=== PATIENT | male | born 1955 | race Caucasian/White ===

== ENCOUNTER 2019-04-08 12:10 | Inpatient (IN) | payer OTHER ==
[~2019-04-08] VITALS: Ht 182.9 cm; Wt 101.7 kg
[2019-04-08 12:16] VITALS: BP 165/67
[2019-04-08 12:34] LABS: ABSOLUTE BASOPHILS 0.1 thou/uL (0.0-0.2); ABSOLUTE EOSINOPHILS 0.2 thou/uL (0.0-0.7); ABSOLUTE LYMPHOCYTES 1.3 thou/uL (0.8-5.3); ABSOLUTE NEUTROPHILS 7.9 thou/uL (1.6-8.1); BASOPHILS 0.8 %; EOSINOPHILS 1.7 %; HEMATOCRIT 50.4 % (42.0-52.0); HEMOGLOBIN 17.1 gm/dL (14.0-18.0); LYMPHOCYTES 12.7 %; MCH 32.2 pg (26.0-34.0); MCHC 33.9 g/dL (28.0-37.0); MCV 95.2 fL (80.0-100.0); MONOCYTES 9.6 %; MPV 8.2 fl. (7.2-11.1); NUCLEATED RBCS 0 /100WBC; PLATELET COUNT* 200 thou/uL (150-400); POLYS 75.2 %; RDW-CV 14.1 % (10.5-14.5); WBC 10.5 thou/uL (4.0-11.0)
[2019-04-08 12:43] LABS: PROTIME 10.2 Seconds (9.20-11.50)
[2019-04-08 12:44] LABS: BE -5.8 mmol/L (-2 to +3); PCO2 33.6 mmHg (35.0-45.0); pH 7.358 (7.340-7.450)
[2019-04-08 12:47] LABS: CALCIUM 8.6 mg/dL (8.5-10.1); CREATININE 1.1 mg/dL (0.6-1.3); POTASSIUM 3.9 mmol/L (3.5-5.1)
[2019-04-08 12:51] LABS: ALBUMIN 3.9 g/dL (3.4-5.0); MAGNESIUM 1.9 mg/dL (1.8-2.4); TOTAL BILIRUBIN 0.4 mg/dL (<0.1-1.0); TOTAL PROTEIN 8.3 g/dL (6.4-8.2)
[2019-04-08 13:24] LABS: URINE BILIRUBIN NEGATIVE (Negative); URINE BLOOD 1+ (Negative); URINE CLARITY CLEAR; URINE COLOR YELLOW; URINE GLUCOSE-RANDOM NEGATIVE (Negative); URINE KETONES NEGATIVE (Negative); URINE LEUKOCYTES-REFLEX NEGATIVE (Negative); URINE NITRITE-REFLEX NEGATIVE (Negative); URINE PROTEIN NEGATIVE (Negative); URINE SPECIFIC GRAVITY 1.025 (1.005-1.030); URINE UROBILINOGEN 0.2 E.U./dl (0.2-1.0)
[2019-04-08 13:32] LABS: BACTERIA-REFLEX 1-9 Few /HPF (None Seen); CASTS None Seen /LPF (None Seen); CRYSTALS None Seen /LPF (None Seen); MUCUS 4-6 Moderate strn/LPF (None Seen); SQUAMOUS 0-3 Few /LPF (0-3); URINE RBC 3-10 Few /HPF (0-2); URINE WBC-REFLEX 0-5 Rare /HPF (0-5)
[2019-04-08 18:24] VITALS: BP 122/77
[2019-04-08 19:31] VITALS: BP 144/82
[2019-04-09] VITALS: BP 115/76
[2019-04-09 04:00] VITALS: BP 143/77
[2019-04-09 05:57] LABS: CALCIUM 8.4 mg/dL (8.5-10.1); MAGNESIUM 1.9 mg/dL (1.8-2.4)
[2019-04-09 08:00] VITALS: BP 137/78
[2019-04-09 11:17] VITALS: BP 117/80
[2019-04-09 16:00] VITALS: BP 119/78
--- NOTE | 2019-04-09 17:03 | EKG ---
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: [facility] : 1955 Requested By: Esperanza Khanna Order Number: [id number] MD: Davon Ureña Measurements Intervals [place] Rate: 95 P: 82 FL: 147 QRS: -73 QRSD: 99 T: 89 QT: 341 QTc: 429 Interpretive Statements Sinus rhythm Left anterior fascicular block Nonspecific T abnrm, anterolateral leads No previous ECG available for comparison Electronically Signed On 04-09-2019 17:02:51 FACILITY PRACTICE SPECIALIST by Davon Ureña [email or web address] <ELECTRONICALLY SIGNED> By: Davon Ureña MD, [facility] 04/09/19 1702 1228 1228 Davon Ureña MD, FAC /EPI
[2019-04-09 20:05] VITALS: BP 108/70
[2019-04-10] VITALS (7 sets, daily range): BP systolic 113–160; BP diastolic 46–86
[2019-04-11 04:10] VITALS: BP 141/72
[2019-04-11 08:00] VITALS: BP 139/88
[2019-04-11 12:00] VITALS: BP 112/73
[2019-04-11] MEDS ORDERED: PREDNISONE 10 M10 MG PO (14:20)
[2019-04-11] MEDS ORDERED: KEFLEX500 M1 PO (14:20)
[2019-04-11] MEDS ORDERED: VENTOLIN HFA 1818 GM INH (14:20)
[2019-04-11 17:47] VITALS: BP 112/73
[2019-04-12 04:04] VITALS: BP 131/77
== END 2019-04-11 20:00 | disposition home or self-care (01) | DRG 193 ==
LOC: M.ERS 12:10 → M.TBA-ER 14:08 → M.2W 14:08
PROVIDERS: Personal Emergency Response Attendant; ADMIT Internal Medicine
DX: J18.9 Pneumonia, unspecified organism (principal); I26.99 Other pulmonary embolism without acute cor pulmonale; J44.0 Chronic obstructive pulmonary disease with (acute) lower respiratory infection; I24.9 Acute ischemic heart disease, unspecified; J44.1 Chronic obstructive pulmonary disease with (acute) exacerbation; F17.210 Nicotine dependence, cigarettes, uncomplicated; J11.1 Influenza due to unidentified influenza virus with other respiratory manifestations; I50.9 Heart failure, unspecified; Z87.442 Personal history of urinary calculi; Z79.899 Other long term (current) drug therapy

== ENCOUNTER 2020-02-25 22:52 | Inpatient (IN) | payer OTHER ==
[~2020-02-25] VITALS: Ht 182.9 cm; Wt 104.3 kg
--- NOTE | ~2020-02-25 | EMS ---
[address] [address] EMS Patient Care Report Name: FADI NICHOLAS Room: [address] ADM IN M.R.#: [id number] Admission: 02/26/20 Attend Phys: Sebastian Claudio MD Discharge: Date of : 59 Report #: [id number] THIS REPORT FOR: //name// Report Transmitted: 02/26/2020 11:57 EMS Care Summary [facility] Incident [id number] @ 02/25/2020 22:11 Incident Location [address] [place] [address] Patient Fadi Nicholas Male, 64 Years 1955 Patient Address [address] [place] [address] Patient History Chronic Obstructive Pulmonary Disease (COPD), Patient Allergies No known allergies, Chief Complaint Shortness of Breath Disposition Transported No Lights/[place] Reason Breathing Problem Transported To [facility] Narrative on scene of a 64 y/o male c/o SOB. pt found sitting in tripod position on chair a/ox4 in moderate distress. per pt he has been SOB for the last 4 days and it has been increasing. per pt he ran out of medication about 1 month ago. SPO2 checked and lungs checked. pt given o2 via neb mask and albuterol and atrovent. pt noted to have increase in SPO2 and decrease work of breathing. pt requested transport to [facility]. pt was assisted to [facility] and during transfer pt work [address] [address] EMS Patient Care Report Name: FADI NICHOLAS Room: 229- ADM IN M.R.#: [id number] Admission: 02/26/20 Attend Phys: Sebastian Claudio MD Discharge: Date of : 59 Report #: [id number] of breathing increased as well as an increase in anxiety. pt moved to micu and vitals checked and monitor showed NSR. pt calmed down for transport. pt transported to [facility] c-2. en route pt reassessed. lungs still had wheezing noted. pt given second dose of albuterol via neb mask. pt denies any c/p abd pain N/V dizziness headache. IV established in left hand 20g with a saline lock using aseptic technique. secondary had no other complaints noted. vitals rechecked with no changes noted. arrive [facility] transfer to ACTUARIAL ANALYST in pt room. Initial Vitals @22:22SpO2: 92, @22:29SpO2: 97, @22:31SpO2: 95, @22:42SpO2: 98, @22:31 @22:22P: 85,R: 30,BP: 166/100, @22:31P: 90,R: 24,BP: 189/144, @22:43P: 86,R: 24,BP: 142/97, @22:22GCS: 15, @22:31GCS: 15, @22:43GCS: 15, @22:19 Assessments @22:19MENTAL:SKIN:HEENT:LUNG SOUNDS:ABDOMEN:PELVIS//GI:EXTREMITIES:PULSE:NEURO: Impression Acute Respiratory Distress (Dyspnea) Procedures @22:22Other - Medication - 8.000 Liters per Minute (l/min [fluid]) - InhalationResponse: Improved@22:22Albuterol - 2.500 Milligrams (mg) - InhalationResponse: Improved@22:22Ipratropium - 0.500 Milligrams (mg) - InhalationResponse: Improved@22:31Albuterol - 2.500 Milligrams (mg) - InhalationResponse: Improved@22:37 cc () Site: Hand-LeftResponse: ImprovedSucceeded@22:313-Lead ECGResponse: UnchangedSucceeded Timeline 22:19,Call Received 22:11,Dispatch Notified 22:11,Psap Call 22:11,Dispatched 22:12,En Route 22:16,On Scene 22:19,At Patient 22:19,BP: / M,PULSE: ,RR: R,SPO2: Ox,ETCO2: ,BG: ,PAIN: ,GCS: , [place] [address] EMS Patient Care Report Name: CRISTOPHERFADI Room: [address] ADM IN .R.#: [id number] Admission: 02/26/20 Attend Phys: Sebastian Claudio MD Discharge: Date of : 59 Report #: [id number] 22:22,Other - Medication - 8.000 Liters per Minute (l/min [fluid]) - Inhalation,Response: Improved 22:22,Albuterol - 2.500 Milligrams (mg) - Inhalation,Response: Improved 22:22,Ipratropium - 0.500 Milligrams (mg) - Inhalation,Response: Improved 22:22,BP: / M,PULSE: ,RR: R,SPO2: 92 Ox,ETCO2: ,BG: ,PAIN: ,GCS: , 22:22,BP: 166/100 M,PULSE: 85,RR: 30 R,SPO2: Ox,ETCO2: ,BG: ,PAIN: ,GCS: , 22:22,BP: / M,PULSE: ,RR: R,SPO2: Ox,ETCO2: ,BG: ,PAIN: ,GCS: 15, 22:29,BP: / M,PULSE: ,RR: R,SPO2: 97 Ox,ETCO2: ,BG: ,PAIN: ,GCS: , 22:31,BP: / M,PULSE: ,RR: R,SPO2: 95 Ox,ETCO2: ,BG: ,PAIN: ,GCS: , 22:31,BP: 189/144 M,PULSE: 90,RR: 24 R,SPO2: Ox,ETCO2: ,BG: ,PAIN: ,GCS: , 22:31,BP: / M,PULSE: ,RR: R,SPO2: Ox,ETCO2: ,BG: ,PAIN: ,GCS: 15, 22:31,Depart Scene 22:31,Albuterol - 2.500 Milligrams (mg) - Inhalation,Response: Improved 22:31,3-Lead ECG,Response: UnchangedSucceeded, 22:31,BP: / M,PULSE: ,RR: R,SPO2: Ox,ETCO2: ,BG: ,PAIN: ,GCS: , 22:37, cc Site: Hand-Left,Response: ImprovedSucceeded, 22:42,BP: / M,PULSE: ,RR: R,SPO2: 98 Ox,ETCO2: ,BG: ,PAIN: ,GCS: , 22:42,At Destination 22:43,BP: 142/97 M,PULSE: 86,RR: 24 R,SPO2: Ox,ETCO2: ,BG: ,PAIN: ,GCS: , 22:43,BP: / M,PULSE: ,RR: R,SPO2: Ox,ETCO2: ,BG: ,PAIN: ,GCS: 15, 22:55,Call Closed Disclaimer v1.1 Copyright 2020 [employer] This EMS Care Summary contains data elements from the applicable legal record (which may be displayed differently). It is designed to provide pertinent information for the following purposes: continuity of care, clinical quality, and state data reporting. The complete legal record is available to ED staff and administrators of the receiving hospital in [employer]'s Patient Tracker. All data is provided "as is."
[~2020-02-25 22:52] MED LIST: KEFLEX500 M1 PO; PREDNISONE 10 M10 MG PO; VENTOLIN HFA 1818 GM INH
[2020-02-25 22:55] VITALS: BP 154/102
[2020-02-25] MEDS ORDERED: SYMBICORT160 MCG/4. INH (22:59)
[2020-02-25 23:46] LABS: ABSOLUTE BASOPHILS 0.1 thou/uL (0.0-0.2); ABSOLUTE EOSINOPHILS 0.6 thou/uL (0.0-0.7); ABSOLUTE LYMPHOCYTES 2.1 thou/uL (0.8-5.3); ABSOLUTE MONOCYTES 0.8 thou/uL (0.0-1.2); ABSOLUTE NEUTROPHILS 7.9 thou/uL (1.6-8.1); BASOPHILS 0.5 %; EOSINOPHILS 5.6 %; HEMATOCRIT 48.2 % (42.0-52.0); HEMOGLOBIN 16.1 gm/dL (14.0-18.0); MCH 32.1 pg (26.0-34.0); MCHC 33.4 g/dL (28.0-37.0); MCV 96.1 fL (80.0-100.0); MONOCYTES 6.9 %; MPV 7.8 fl. (7.2-11.1); NUCLEATED RBCS 0 /100WBC; PLATELET COUNT* 180 thou/uL (150-400); RBC 5.01 mil/uL (4.50-6.00); RDW-CV 13.7 % (10.5-14.5); WBC 11.4 thou/uL (4.0-11.0)
[2020-02-25 23:54] LABS: INFLUENZA A ANTIGEN Negative (Negative); INFLUENZA B ANTIGEN Negative (Negative)
[2020-02-26 00:02] LABS: CALCIUM 8.1 mg/dL (8.5-10.1); CREATININE 0.9 mg/dL (0.6-1.3); POTASSIUM 3.8 mmol/L (3.5-5.1); PROTIME 10.7 Seconds (9.20-11.50)
[2020-02-26 00:06] LABS: ALBUMIN 3.5 g/dL (3.4-5.0); TOTAL BILIRUBIN 0.5 mg/dL (<0.1-1.0); TOTAL PROTEIN 7.2 g/dL (6.4-8.2)
[2020-02-26 00:55] LABS: BE -5.1 mmol/L (-2 to +3); PCO2 37.3 mmHg (35.0-45.0); PO2 107.5 mmHg (75.0-100.0); pH 7.345 (7.340-7.450)
[2020-02-26 04:30] VITALS: BP 104/66
[2020-02-26 08:39] VITALS: BP 134/80
[2020-02-26 08:46] VITALS: BP 134/80
--- NOTE | 2020-02-26 08:48 | NUR ---
PT ORIENTED TO ROOM AND UNIT, KELLY LOW AND LOCKED, SIDE RAILS UPX3, CALL LIGHT IN REACH, TELE APPLIED. WILL CONTINUE TO ASSESS.
--- NOTE | 2020-02-26 10:06 | EKG ---
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: [place] : 1955 Requested By: Esperanza Khanna Order Number: [id number] MD: Juan M Schmitz Measurements Intervals [place] Rate: 90 P: 83 ND: 152 QRS: -75 QRSD: 102 T: 83 QT: 366 QTc: 448 Interpretive Statements Sinus rhythm with pac Left anterior fascicular block Baseline wander in lead(s) V1,V3 Compared to ECG 04/08/2019 12:28:25 no change Electronically Signed On 02-26-2020 10:06:43 DIRECT MARKETING ANALYST by Juan M Schmitz [email or web address] <ELECTRONICALLY SIGNED> By: Juan M Schmitz MD, FACC 02/26/20 1006 50 50 Juan M Schmitz MD, FAC /EPI
[2020-02-26 13:11] VITALS: BP 124/78
[2020-02-26 15:40] VITALS: BP 113/66
[2020-02-26 20:20] VITALS: BP 102/64
[2020-02-27] VITALS: BP 109/65
[2020-02-27 04:00] VITALS: BP 111/62
--- NOTE | 2020-02-27 05:26 | NUR ---
ASSUMED CARE AT 1920, ON [facility]. ALERT AND ORIENT. NO DISTRESS. PT ASKING FOR SYMBICORT COUPON FROM THE CLINICAL CODER HE TALKED YESTERDAY. HIS HOPING TO GET BEFOR DISCHARGE. CONTINUE MONITORING AND TOWARDS GOALS.
[2020-02-27 08:00] VITALS: BP 121/64
--- NOTE | 2020-02-27 10:04 | NUR ---
CM SPOKE TO THE PT TO COMPLETE CM ASSESSMENT. PT A&O, INDEPENDENT WITH ADL'S, AND WORKS OUTSIDE THE HOME. PT OWNS 0 DME. PT HAS 0 HX OF HH OR SNF. PT INFROMS THAT HE DOES NOT HAVE INSURANCE, BUT INFORMS THAT HE WILL HAVE INSURANCE IN MARCH. PT ALSO INFORMS THAT HE BEEN GOING TO THE '[facility]' FOR MEDICAL CARE AND MANAGEMENT, AND WILL CONTINUE TO USE THEM AT D/C DUE TO NOT HAVING INSURANCE. PT ASSESSED BY MED ASSIST AND IS MEDICAID PENDING STATUS. PATIENT'S INSURANCE STATUS MAY BE A BARRIER TO D/C PLANNING IF THE PT WOULD NEED HOME O2 OR OTHER DME. PT IS CURRENTLY ON 4L O2 AND USING BIPAP AT [facility]. CM WILL REMAIN AVAILABLE TO ASSIST AND FOLLOW NEEDED.
[2020-02-27 12:14] VITALS: BP 142/68
[2020-02-27 16:13] VITALS: BP 118/77
--- NOTE | 2020-02-27 17:56 | NUR ---
ASSUMED PT CARE AT 0730, PT AOX4, NO C/O PAIN OR SHORTNESS OF BREATH BUT STATES HE BECOMES SHORT OF BREATH SOMETIMES WHEN HE WALKS AROUND. PT TITRATED FROM 4L TO RA, SATTING ABOVE 90%. PT AMBULATED HALLS THIS AFTERNOON. PT NEEDS SYMBALTA SCRIPT FOR NEXT 30 DAYS SINCE HIS INSURANCE DOESN'T KICK IN UNTIL Mar, CM CONSULTED FOR THIS AND AWAITING SCRIPT. PT GOAL IS TO KEEP SATS ABOVE 90% AND REMAIN FREE FROM SHORTNESS OF BREATH. AM ASSESSMENT CHARTED, MEDS PER MAY, HOURLY ROUNDING OBSERVED, PT UP AD MICKI, CALL LIGHT W/IN REACH.
[2020-02-27 20:00] VITALS: BP 129/77
[2020-02-28] VITALS: BP 99/55
[2020-02-28 04:00] VITALS: BP 121/77
[2020-02-28 04:36] LABS: HEMATOCRIT 47.3 % (42.0-52.0); HEMOGLOBIN 15.5 gm/dL (14.0-18.0); MCH 31.9 pg (26.0-34.0); MCHC 32.8 g/dL (28.0-37.0); MCV 97.2 fL (80.0-100.0); MPV 8.2 fl. (7.2-11.1); NUCLEATED RBCS 0 /100WBC; PLATELET COUNT* 177 thou/uL (150-400); RBC 4.87 mil/uL (4.50-6.00); RDW-CV 14.1 % (10.5-14.5); WBC 19.3 thou/uL (4.0-11.0)
[2020-02-28 04:59] LABS: ALBUMIN 3.1 g/dL (3.4-5.0); CALCIUM 7.9 mg/dL (8.5-10.1); CREATININE 0.9 mg/dL (0.6-1.3); TOTAL BILIRUBIN 0.2 mg/dL (<0.1-1.0); TOTAL PROTEIN 6.7 g/dL (6.4-8.2)
[2020-02-28 06:41] LABS: ABSOLUTE LYMPHOCYTES 1.4 thou/uL (0.8-5.3); ABSOLUTE MONOCYTES 0.8 thou/uL (0.0-1.2); ABSOLUTE NEUTROPHILS 17.2 thou/uL (1.6-8.1); PLATELET ESTIMATE ADEQUATE
[2020-02-28 08:00] VITALS: BP 169/100
[2020-02-28 12:17] VITALS: BP 123/82
[2020-02-28] MEDS ORDERED: PREDNISONE 20 M20 M1 PO (15:12)
[2020-02-28 15:15] VITALS: BP 123/82
--- NOTE | 2020-02-28 15:43 | NUR ---
CM SPOKE TO THE PT TO DISCUSS D/C PLANNING AND CM ASSISTING PT WITH MEDICATIONS. PT ACCEPTS ASSISSTANCE WITH PRESCRIPTION FOR STYMBICORT. CM CALLED AND FAXED PT'S SCRIPT TO [facility]. PT INFORMED THAT HE WILL NOT HAVE COPAY AMOUNT FOR SYMBICORT. PT TEST BY R.T. AND PT DOES NOT NEED HOME OXYGEN AT D/C. CM WILLL REMAIN AVAILABLE TO ASSIST AND FOLLOW NEEDED.
[2020-02-28 16:00] VITALS: BP 126/75
--- NOTE | 2020-02-28 18:13 | NUR ---
ASSUMED PT CARE AT 0730, PT AOX4, NO C/O PAIN OR SHORTNESS OF BREATH. PT TITRATED TO RA AGAIN, SATS ABOVE 90%, PT WORKED W/ RT AND DID WALKING O2 MONITOR, DID WELL. PT GOT SCRIPT FOR SYMBICORT COVERED BY HOSPITAL AND SCRIPT FOR PREDNISONE CALLED INTO [address] [facility]. PT BEING PICKED UP BY [facility] AT APPROX 1823, PT DC'D W/ NURSING STAFF TO FRONT ENTRANCE AT APPROX 1815 W/ ALL PAPERWORK AND BELONGINGS TO [facility]. PT COMMUNICATES UNDERSTANDING OF DC TEACHING.
--- NOTE | 2020-02-29 14:41 | CON ---
[address] [address] CONSULTATION Name: FADI NICHOLAS Room: [address] IN M.R.#: [id number] Admission: 02/26/20 Attend Phys: Sebastian Claudio MD Discharge: 02/28/20 Date of : 59 Report #: [id number] THIS REPORT FOR: //name// cc: Dick Johnston DO MouseDick DO ~ DATE OF SERVICE: 02/28/2020 Consult has been requested by Paris Smith. INDICATION FOR CONSULTATION: COPD exacerbation. HISTORY OF PRESENT ILLNESS: A 64-year-old gentleman. He is an active smoker and does have a history of COPD, was on Symbicort at home, which he ran out of. He subsequently did self-medicate with prednisone; however, continued to have increasing shortness of breath as well as a cough with yellow sputum production; and therefore, eventually was admitted here. He only has mild swelling of lower extremities. He is not describing fever or chills. He has had some runny nose and blocked nose, which remain at baseline. He has some sleep complaints, which remain at baseline. Initially, he was hypoxemic. He did require a BiPAP. He is now off BiPAP. He was on 4 liters nasal cannula this morning, which has now been titrated down to 2. He reports improvement in shortness of breath. He has been on Solu-Medrol. He has not been on broad-spectrum antibiotics. REVIEW OF SYSTEMS: The patient's review of systems for 12 points is negative except as mentioned above. PAST MEDICAL HISTORY: COPD, kidney stones, tonsillitis, lower abdominal hernia. SOCIAL HISTORY: Active smoker, has been smoking for several decades. Occasional alcohol use. No known history of illegal drug use. CURRENT MEDICATIONS: List in KO-SU reviewed. HOME MEDICATIONS: List also in KO-SU reviewed. Also, see discussion above. FAMILY HISTORY: No pertinent family history. PHYSICAL EXAMINATION: GENERAL: Alert, awake and oriented. VITAL SIGNS: He has a pulse of 84 and a blood pressure of 169/100 this morning. This, however, appears to be an isolated reading. Most blood pressures are within the normal range. His oxygen had been turned down to 2 liters. On [address] [place] [address] CONSULTATION Name: FADI NICHOLAS Room: [address] IN [facility]#: [id number] Admission: 02/26/20 Attend Phys: Sebastian Claudio MD Discharge: 02/28/20 Date of : 59 Report #: [id number] liters, he was saturating 94% earlier. He has a pulse of 84. He is afebrile with a temperature of 36.6. HEENT: Head is normocephalic and atraumatic. Pupils are equal and reactive. He does have thrush in his throat. He has a narrow airway. NECK: Does not show raised JVP, asymmetry, mass or lymph nodes. CHEST: Symmetrical expansion on inspection and palpation. On auscultation, breath sounds are bilaterally equal, decreased. No added sounds. HEART: Regular. There is no murmur. ABDOMEN: Soft and nontender. EXTREMITIES: Lower extremities show trace edema, no calf tenderness. SKIN: Dry and intact. NEUROLOGICAL: Moves all extremities bilaterally equally and spontaneously with no focal deficit identified. LABORATORY DATA: The patient's lab work is in [facility]. This was reviewed. The patient's chest x-ray from 02/24 also in [facility] reviewed, shows changes consistent with COPD with no acute infiltrates identified. ASSESSMENT AND PLAN: 1. Acute hypoxemic respiratory failure secondary to chronic obstructive pulmonary disease. We will do a chest x-ray now and see where we stand. Recommended trying to taper him off oxygen. If the patient is able to maintain O2 saturations on room air then I do not feel strongly either way regarding discharging him today or tomorrow morning. If he is still requiring supplemental oxygen at rest then I would favor keeping him in the hospital tomorrow. Assessment is underway. 2. Chronic obstructive pulmonary disease exacerbation. I agree with Solu-Medrol, which has now been discontinued. He remains on oxygen. I may order more Solu-Medrol for this evening. Otherwise, I agree with starting a prednisone taper tomorrow. He has had yellow sputum production, which is the reason that I ordered doxycycline. If there are significant infiltrates seen on the chest x-ray then additional antibiotics can also be considered. 3. Thrush. Fluconazole. 4. Hypersomnia. It appears likely that he has underlying sleep apnea. I will be happy to arrange an outpatient sleep study. 5. I would also be happy to see the patient in the office in March and then assess further. Thanks for this consultation. <ELECTRONICALLY SIGNED> By: Carlos Roberts MD 02/29/20 1441 1206 1221Amark anthony Roberts MD /nt
== END 2020-02-28 18:13 | disposition home or self-care (01) | DRG 189 ==
LOC: M.ERS 22:52 → M.TBA-ER 02-26 00:10 → M.2W 02-26 09:08 → M.TBA-ER 02-26 09:08 → M.2W 02-26 09:29
PROVIDERS: Nurse Practitioner; Personal Emergency Response Attendant; ADMIT Internal Medicine; ATTEND Internal Medicine
PROC: 5A09357 Assistance with Respiratory Ventilation, Less than 24 Consecutive Hours, Continuous Positive Airway Pressure (ICD-10-PCS; principal; 2020-02-26)
DX: J96.01 Acute respiratory failure with hypoxia (principal); J44.1 Chronic obstructive pulmonary disease with (acute) exacerbation; F17.210 Nicotine dependence, cigarettes, uncomplicated; E66.9 Obesity, unspecified; B37.9 Candidiasis, unspecified; G47.10 Hypersomnia, unspecified; Z20.828 Contact with and (suspected) exposure to other viral communicable diseases; Z87.442 Personal history of urinary calculi; Z68.31 Body mass index [BMI] 31.0-31.9, adult; Z71.6 Tobacco abuse counseling

== ENCOUNTER 2020-04-10 19:49 | Inpatient (IN) | payer OTHER ==
[~2020-04-10] VITALS: Ht 182.9 cm; Wt 114.8 kg
[~2020-04-10 19:49] MED LIST changes: +PREDNISONE 20 M20 M1 PO; +SYMBICORT160 MCG/4. INH
[2020-04-10 19:56] VITALS: BP 143/94
[2020-04-10] MEDS ORDERED: FLONASE 0.05%50 MCG NARES (20:00)
[2020-04-10] MEDS ORDERED: FLONASE 0.05%50 MCG NASAL (20:00)
[2020-04-10 20:28] LABS: ABSOLUTE BASOPHILS 0.1 thou/uL (0.0-0.2); ABSOLUTE EOSINOPHILS 0.5 thou/uL (0.0-0.7); ABSOLUTE LYMPHOCYTES 2.6 thou/uL (0.8-5.3); ABSOLUTE MONOCYTES 0.9 thou/uL (0.0-1.2); ABSOLUTE NEUTROPHILS 7.7 thou/uL (1.6-8.1); BASOPHILS 0.8 %; EOSINOPHILS 4.5 %; HEMATOCRIT 49.8 % (42.0-52.0); HEMOGLOBIN 16.5 gm/dL (14.0-18.0); LYMPHOCYTES 22.2 %; MCH 31.6 pg (26.0-34.0); MCHC 33.2 g/dL (28.0-37.0); MCV 95.1 fL (80.0-100.0); MONOCYTES 7.3 %; MPV 8.2 fl. (7.2-11.1); NUCLEATED RBCS 0 /100WBC; PLATELET COUNT* 187 thou/uL (150-400); POLYS 65.2 %; RBC 5.23 mil/uL (4.50-6.00); WBC 11.8 thou/uL (4.0-11.0)
[2020-04-10 20:35] LABS: CALCIUM 8.4 mg/dL (8.5-10.1); CREATININE 0.9 mg/dL (0.6-1.3); POTASSIUM 3.8 mmol/L (3.5-5.1)
[2020-04-10 20:38] LABS: APTT 27.6 Seconds (25.0-31.3); PROTIME 10.3 Seconds (9.20-11.50)
[2020-04-10 20:40] LABS: ALBUMIN 3.7 g/dL (3.4-5.0); MAGNESIUM 2.2 mg/dL (1.8-2.4); TOTAL BILIRUBIN 0.4 mg/dL (<0.1-1.0); TOTAL PROTEIN 7.4 g/dL (6.4-8.2)
[2020-04-10 20:42] LABS: INFLUENZA A ANTIGEN Negative (Negative); INFLUENZA B ANTIGEN Negative (Negative)
[2020-04-10 21:00] LABS: BE -2.5 mmol/L (-2 to +3); PCO2 37.5 mmHg (35.0-45.0); PO2 65.6 mmHg (75.0-100.0); pH 7.385 (7.340-7.450)
[2020-04-10 23:35] VITALS: BP 127/80
[2020-04-11 00:19] LABS: URINE BILIRUBIN NEGATIVE (Negative); URINE BLOOD NEGATIVE (Negative); URINE CLARITY CLEAR; URINE COLOR YELLOW; URINE GLUCOSE-RANDOM NEGATIVE (Negative); URINE KETONES NEGATIVE (Negative); URINE LEUKOCYTES-REFLEX NEGATIVE (Negative); URINE NITRITE-REFLEX NEGATIVE (Negative); URINE PROTEIN NEGATIVE (Negative); URINE SPECIFIC GRAVITY 1.015 (1.005-1.030); URINE UROBILINOGEN 0.2 E.U./dl (0.2-1.0)
[2020-04-11 00:57] VITALS: BP 146/95
[2020-04-11 03:59] VITALS: BP 123/85
[2020-04-11 12:00] VITALS: BP 154/96
--- NOTE | 2020-04-11 12:57 | EKG ---
[place] [address] ELECTROCARDIOGRAM REPORT Name: AFDI NICHOLAS Room: [address] ADM IN .R.#: [id number] Admission: 04/10/20 Attend Phys: Sebastian Claudio, Discharge: Date of : 59 Date of Service: 04/10/201955 Report #: [id number] THIS REPORT FOR: //name// [facility] ED Test Date: 2020-04-10 Test Time: 19:56:22 Pat Name: FADI NICHOLAS Department: Room: [facility] Gender: M Hydroblaster: [place] : 1955 Requested By: Esperanza Khanna Order Number: [id number] MD: Davon Ureña Measurements Intervals [place] Rate: 91 P: 69 NE: 148 QRS: -73 QRSD: 98 T: 86 QT: 351 QTc: 432 Interpretive Statements Sinus rhythm Left anterior fascicular block Compared to ECG 02/25/2020 22:51:42 Atrial premature complex(es) no longer present Electronically Signed On 04-11-2020 12:57:37 CERTIFIED EXECUTIVE CHEF by Davon Ureña [email or web address] <ELECTRONICALLY SIGNED> By: Davon Ureña MD, FACC 04/11/20 1257 55 55 Davon Ureña MD, FAC /EPI
[2020-04-11 16:00] VITALS: BP 146/82
[2020-04-11 20:06] VITALS: BP 146/86
[2020-04-12 04:06] LABS: CALCIUM 8.8 mg/dL (8.5-10.1); POTASSIUM 4.1 mmol/L (3.5-5.1)
[2020-04-12 04:19] LABS: HEMATOCRIT 47.5 % (42.0-52.0); HEMOGLOBIN 15.7 gm/dL (14.0-18.0); MCH 31.4 pg (26.0-34.0); MCV 95.1 fL (80.0-100.0); MPV 8.7 fl. (7.2-11.1); RBC 4.99 mil/uL (4.50-6.00); RDW-CV 13.8 % (10.5-14.5); WBC 18.6 thou/uL (4.0-11.0)
[2020-04-12 04:21] VITALS: BP 136/82
[2020-04-12 08:00] VITALS: BP 121/86
[2020-04-12] MEDS ORDERED: DOXYCYCLINE 10100 MG PO (08:59)
[2020-04-12] MEDS ORDERED: PREDNISONE 10 M10 M1 PO (08:59)
[2020-04-12 11:18] VITALS: BP 121/86
== END 2020-04-12 12:00 | disposition home or self-care (01) | DRG 189 ==
LOC: M.ERS 19:49 → M.2W 21:46 → M.TBA-ER 21:46 → M.2W 23:45
PROVIDERS: Family Medicine; Personal Emergency Response Attendant; ADMIT Internal Medicine; ATTEND Internal Medicine
DX: J96.01 Acute respiratory failure with hypoxia (principal); J44.1 Chronic obstructive pulmonary disease with (acute) exacerbation; E66.01 Morbid (severe) obesity due to excess calories; F17.200 Nicotine dependence, unspecified, uncomplicated; R73.9 Hyperglycemia, unspecified; T38.0X5A Adverse effect of glucocorticoids and synthetic analogues, initial encounter; Z20.822 Contact with and (suspected) exposure to COVID-19; Z68.34 Body mass index [BMI] 34.0-34.9, adult; Z79.899 Other long term (current) drug therapy; Y92.89 Other specified places as the place of occurrence of the external cause

== ENCOUNTER 2020-05-06 06:18 | Emergency (ER) | payer OTHER ==
[~2020-05-06] VITALS: Ht 182.9 cm; Wt 115.5 kg
[~2020-05-06 06:18] MED LIST changes: +DOXYCYCLINE 10100 MG PO; +FLONASE 0.05%50 MCG NARES; +FLONASE 0.05%50 MCG NASAL; +PREDNISONE 10 M10 M1 PO
[2020-05-06] MEDS ORDERED: PROAIR HFA8.5 GM INH ×2 (06:32→07:56)
[2020-05-06 07:10] LABS: ABSOLUTE BASOPHILS 0.1 thou/uL (0.0-0.2); ABSOLUTE EOSINOPHILS 0.3 thou/uL (0.0-0.7); ABSOLUTE LYMPHOCYTES 1.6 thou/uL (0.8-5.3); ABSOLUTE MONOCYTES 0.7 thou/uL (0.0-1.2); ABSOLUTE NEUTROPHILS 6.2 thou/uL (1.6-8.1); BASOPHILS 0.7 %; EOSINOPHILS 3.7 %; HEMATOCRIT 47.2 % (42.0-52.0); HEMOGLOBIN 15.9 gm/dL (14.0-18.0); LYMPHOCYTES 17.8 %; MCH 32.3 pg (26.0-34.0); MCHC 33.8 g/dL (28.0-37.0); MCV 95.6 fL (80.0-100.0); MONOCYTES 7.8 %; MPV 7.7 fl. (7.2-11.1); NUCLEATED RBCS 0 /100WBC; PLATELET COUNT* 196 thou/uL (150-400); RBC 4.94 mil/uL (4.50-6.00); RDW-CV 13.8 % (10.5-14.5); WBC 8.9 thou/uL (4.0-11.0)
[2020-05-06 07:21] LABS: APTT 28.3 Seconds (25.0-31.3); PROTIME 10.4 Seconds (9.20-11.50)
[2020-05-06 07:23] LABS: CALCIUM 8.5 mg/dL (8.5-10.1); POTASSIUM 4.1 mmol/L (3.5-5.1)
[2020-05-06 07:34] LABS: ALBUMIN 3.5 g/dL (3.4-5.0); MAGNESIUM 2.1 mg/dL (1.8-2.4); TOTAL BILIRUBIN 0.4 mg/dL (<0.1-1.0); TOTAL PROTEIN 7.1 g/dL (6.4-8.2)
[2020-05-06] MEDS ORDERED: PREDNISONE 20 M20 MG PO (07:56)
[2020-05-06] MEDS ORDERED: DOXYCYCLINE 10100 MG PO (07:56)
[2020-05-06 08:14] VITALS: BP 115/75
--- NOTE | 2020-05-07 14:05 | EKG ---
[place] [address] ELECTROCARDIOGRAM REPORT Name: FADI NICHOLAS Room: 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 : 1955 Requested By: Austyn Lunsford Order Number: [id number] MD: Bobby Sultana Measurements Intervals [place] Rate: 87 P: 65 [place]: 149 QRS: -70 QRSD: 96 T: 79 QT: 355 QTc: 427 Interpretive Statements Sinus rhythm Left anterior fascicular block Compared to ECG 04/10/2020 19:56:22 No significant changes Electronically Signed On 05-07-2020 14:05:05 EXTRUSION MANAGER by Bobby Sultana [email or web address] <ELECTRONICALLY SIGNED> By: oBbby Sultana MD, [facility] 05/07/20 1405 0627 0627 Bobby Sultana MD, [facility] /EPI
== END 2020-05-06 08:16 | disposition home or self-care (01) ==
LOC: M.ERS 06:18
PROVIDERS: Family Medicine
DX: J44.9 Chronic obstructive pulmonary disease, unspecified (principal); Z20.822 Contact with and (suspected) exposure to COVID-19; Z87.442 Personal history of urinary calculi; Z90.89 Acquired absence of other organs

== ENCOUNTER 2020-05-22 17:15 | Observation (INO) | payer OTHER ==
[~2020-05-22] VITALS: Ht 182.9 cm; Wt 114.8 kg
[~2020-05-22 17:15] MED LIST changes: +PREDNISONE 20 M20 MG PO; +PROAIR HFA8.5 GM INH
[2020-05-22 17:16] VITALS: BP 141/91
[2020-05-22 18:06] LABS: ABSOLUTE BASOPHILS 0.1 thou/uL (0.0-0.2); ABSOLUTE EOSINOPHILS 0.2 thou/uL (0.0-0.7); ABSOLUTE LYMPHOCYTES 2.2 thou/uL (0.8-5.3); ABSOLUTE MONOCYTES 0.9 thou/uL (0.0-1.2); ABSOLUTE NEUTROPHILS 7.8 thou/uL (1.6-8.1); BASOPHILS 1.3 %; EOSINOPHILS 2.2 %; HEMATOCRIT 46.7 % (42.0-52.0); HEMOGLOBIN 15.5 gm/dL (14.0-18.0); LYMPHOCYTES 19.4 %; MCH 31.8 pg (26.0-34.0); MCHC 33.1 g/dL (28.0-37.0); MCV 95.9 fL (80.0-100.0); MONOCYTES 8.3 %; MPV 8.3 fl. (7.2-11.1); NUCLEATED RBCS 0 /100WBC; PLATELET COUNT* 195 thou/uL (150-400); POLYS 68.8 %; RBC 4.87 mil/uL (4.50-6.00); RDW-CV 13.9 % (10.5-14.5); WBC 11.3 thou/uL (4.0-11.0)
[2020-05-22 18:16] LABS: CALCIUM 8.8 mg/dL (8.5-10.1); POTASSIUM 3.9 mmol/L (3.5-5.1)
[2020-05-22 18:23] LABS: APTT 28.5 Seconds (25.0-31.3); PROTIME 10.3 Seconds (9.20-11.50)
[2020-05-22 18:27] LABS: ALBUMIN 3.3 g/dL (3.4-5.0); MAGNESIUM 2.2 mg/dL (1.8-2.4); TOTAL BILIRUBIN 0.3 mg/dL (<0.1-1.0); TOTAL PROTEIN 6.8 g/dL (6.4-8.2)
[2020-05-22 21:39] VITALS: BP 115/70
[2020-05-22 22:06] VITALS: BP 131/81
[2020-05-23 01:10] VITALS: BP 123/72
[2020-05-23 04:54] VITALS: BP 117/73
[2020-05-23 12:28] VITALS: BP 117/73
== END 2020-05-23 15:29 | disposition home or self-care (01) ==
LOC: M.ERS 17:15 → M.TBA-ER 19:04 → M.2W 19:04
PROVIDERS: Emergency Medicine Emergency Medical Services; ADMIT Internal Medicine; ATTEND Internal Medicine
DX: J44.1 Chronic obstructive pulmonary disease with (acute) exacerbation (principal); Z20.822 Contact with and (suspected) exposure to COVID-19; F17.210 Nicotine dependence, cigarettes, uncomplicated; E66.9 Obesity, unspecified; Z88.8 Allergy status to other drugs, medicaments and biological substances; Z90.89 Acquired absence of other organs; Z68.34 Body mass index [BMI] 34.0-34.9, adult

== ENCOUNTER 2020-05-29 20:03 | Observation (INO) | payer OTHER ==
[~2020-05-29] VITALS: Ht 182.9 cm; Wt 118.0 kg
--- NOTE | ~2020-05-29 | CON ---
[address] [address] CONSULTATION Name: FADI NICHOLAS Room: [address] M.R.#: [id number] Admission: 05/29/20 Attend Phys: Sebastian Claudio MD Discharge: Date of : 59 Report #: [id number] THIS REPORT FOR: cc: PALMA - No family physician/PCP PALMA - No family physician/PCP ~ Carlos Roberts MD DATE OF SERVICE: 05/30/2020 Consult has been requested by Dr. Jennings. INDICATION FOR CONSULTATION: Shortness of breath. HISTORY OF PRESENT ILLNESS: This is a 64-year-old gentleman with a past medical history of COPD. I have previously seen him in this hospital in 01/2020. The patient is an active smoker in addition to having COPD. The patient by clinical history also appears to have obstructive sleep apnea. The patient has not been on a CPAP or a BiPAP. It appears that the patient has not been on any controller medicine for COPD long-term. He does have Symbicort at home; however, he has not only been using it irregularly, he does not in fact know the correct technique to use the inhaler. He therefore has been treating himself with prednisone. At times, prednisone has been prescribed by his primary care physician and also during hospital admissions. At other times, he has also been self-medicating with prednisone, possibly left over from previous prescriptions. He states that he takes prednisone; whenever he takes it, he gets better and then he stops taking it and then, he has another exacerbation. Since I last saw him in January, he has had several admissions to this hospital. The patient does have disturbed sleep at night as well as sleepiness during the day as well. He also does have clear nasal discharge as well as blocked nose as well. His nose complaints are at baseline. Once again, the patient is now admitted with increasing shortness of breath. His shortness of breath is primarily on exertion. At times, he is having shortness of breath at rest as well. He is significantly short of breath on minimal exertion such as walking just 1 or 2 steps. He does not have orthopnea. He does have a cough; there is not much sputum. There is no chest pain. His nasal complaints are at baseline. There is no fever or chills. He does not have nausea or vomiting. There is no swelling of lower extremities or calf pain. He was not complaining of heartburn at this time. REVIEW OF SYSTEMS: The patient's review of systems for 12 points is negative [place] [address] CONSULTATION Name: FADI NICHOLAS Room: [address] [place] M.R.#: [id number] Admission: 05/29/20 Attend Phys: Sebastian Claudio MD Discharge: Date of : 59 Report #: [id number] PAST MEDICAL HISTORY: COPD; obstructive sleep apnea by clinical history, not diagnosed previously with a sleep study; renal stones; tonsillitis; lower abdominal hernia; status post tonsillectomy; status post hernia repair; kidney stone removal. SOCIAL HISTORY: He has an extensive history of smoking, has been smoking for several decades; he says that he has now cut down to 4 or 5 cigarettes a day and has smoked much more in the past. No known history of heavy alcohol use or illegal drug use. CURRENT MEDICATIONS: List in [employer] reviewed. HOME MEDICATIONS: List in also [employer] reviewed. See also discussion above. FAMILY HISTORY: No pertinent family history. ALLERGIES: No known drug allergies. PHYSICAL EXAMINATION: GENERAL: He is alert, awake and oriented. VITAL SIGNS: Has a pulse of 98 and a blood pressure of 137/87; he is saturating 92%, he is on room air; his respiratory rate is 18. Body mass index is 35.3. HEENT: Head is normocephalic and atraumatic. Pupils are equal and reactive. He has a significant amount of thrush in his throat. His airway is narrow. It is around Mallampati 3. NECK: Does not show raised JVP, asymmetry, mass or lymph nodes. CHEST: Symmetrical expansion on inspection and palpation. On auscultation, breath sounds are bilaterally equal, but decreased. I do not hear any added sounds. HEART: Regular. There is no murmur. ABDOMEN: Soft and nontender. EXTREMITIES: Lower extremities show no edema, no calf tenderness. SKIN: Dry and intact. NEUROLOGICAL: Moves all extremities bilaterally equally and spontaneously with no focal deficit identified. LABORATORY DATA: The patient's chest x-ray reviewed, shows some chronic changes, there are no acute infiltrates identified. The patient's lab work is in [employer] and this is reviewed. Arterial blood gas last performed in March shows normal pCO2. The patient's COVID-19 screen is negative. ASSESSMENT AND PLAN: 1. Shortness of breath. The patient appears to have chronic obstructive pulmonary disease as well as obstructive sleep apnea for which he does not [address] [address] CONSULTATION Name: FADI NICHOLAS Room: [address] [place] Joe#: [id number] Admission: 05/29/20 Attend Phys: Sebastian Claudio MD Discharge: Date of : 59 Report #: [id number] appear to be on any long-term controller therapy. This is the reason that he is having multiple episodes of acute shortness of breath for which he is needing admission. In addition to quitting smoking, I recommend that he should get on a long-term controller medicine regimen for chronic obstructive pulmonary disease as well as have his suspected sleep apnea evaluated to try to end this vicious cycle. Thromboembolism is less likely; however, we have not fully ruled it out at this point. 2. Chronic obstructive pulmonary disease exacerbation. I cut down his Solu-Medrol to 40 mg q.8 hours. We will continue with nebulized bronchodilators as currently prescribed. In the long run, I do feel that he will benefit from an inhaled corticosteroid; however, I temporarily discontinued his inhaled corticosteroid for now as he has thrush. In the long run, if the patient is interested, then I will be happy to see him in the office and come up with a long-term regimen for his chronic obstructive pulmonary disease. He has Symbicort; however, he does not know the correct technique and needs to be taught the correct technique. If Symbicort is continued, then we may need to add a long-acting anticholinergic agent, either Incruse or Spiriva, perhaps an easier alternate could be to use low dose Trelegy Ellipta inhaler 1 inhalation once a day in addition to continuing with p.r.n. albuterol. 3. Thrush. We will go ahead and treat him with fluconazole. The patient should also rinse his mouth and gargle after using inhaled corticosteroids once he is restarted on these. 4. Hypersomnia. Recommend obtaining an outpatient sleep study; and then, we will likely set him up with a CPAP or a BiPAP. 5. Evaluation for thromboembolic phenomena. Overall, my suspicion is low. His pulmonary artery systolic pressure is not elevated at 32. Regardless, I do recommend that we go ahead and obtain a D-dimer. In case the D-dimer comes back elevated, I would suggest considering a CTA chest. 6. Evaluation for cardiac etiologies of shortness of breath. Primarily, the patient's shortness of breath appears to be secondary to insufficiently treated chronic obstructive pulmonary disease and sleep apnea, but also obtaining a cardiac stress test will be reasonable. I would defer to the primary service as to whether this is considered during this admission or deferred to later as an outpatient. 7. Monitoring of liver function enzymes. The same is recommended while on fluconazole. 8. Deep vein thrombosis prophylaxis. We will start Lovenox. Thanks for this consultation. By: [id number] anthony Roberts MD /sammi
[2020-05-29 20:08] VITALS: BP 150/100
[2020-05-29] MEDS ORDERED: ALBUTEROL2.5 MG/31 INH (20:16)
[2020-05-29 21:05] LABS: ABSOLUTE BASOPHILS 0.1 thou/uL (0.0-0.2); ABSOLUTE EOSINOPHILS 0.5 thou/uL (0.0-0.7); ABSOLUTE LYMPHOCYTES 2.5 thou/uL (0.8-5.3); ABSOLUTE MONOCYTES 0.8 thou/uL (0.0-1.2); ABSOLUTE NEUTROPHILS 6.9 thou/uL (1.6-8.1); BASOPHILS 1.2 %; HEMATOCRIT 46.7 % (42.0-52.0); HEMOGLOBIN 15.6 gm/dL (14.0-18.0); MCH 31.8 pg (26.0-34.0); MCHC 33.4 g/dL (28.0-37.0); MCV 95.2 fL (80.0-100.0); MONOCYTES 7.5 %; MPV 7.9 fl. (7.2-11.1); NUCLEATED RBCS 0 /100WBC; PLATELET COUNT* 180 thou/uL (150-400); POLYS 63.3 %; RBC 4.91 mil/uL (4.50-6.00); RDW-CV 13.8 % (10.5-14.5); WBC 10.9 thou/uL (4.0-11.0)
[2020-05-29 21:16] LABS: PROTIME 10.2 Seconds (9.20-11.50)
[2020-05-29 21:17] LABS: CALCIUM 9.5 mg/dL (8.5-10.1)
[2020-05-29 21:26] LABS: ALBUMIN 3.3 g/dL (3.4-5.0); TOTAL BILIRUBIN 0.4 mg/dL (<0.1-1.0); TOTAL PROTEIN 6.8 g/dL (6.4-8.2)
[2020-05-29 23:25] VITALS: BP 134/92
[2020-05-29 23:40] VITALS: BP 120/70
[2020-05-30 04:00] VITALS: BP 109/79
[2020-05-30 07:20] VITALS: BP 129/86
--- NOTE | 2020-05-30 09:32 | EKG ---
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1955 Requested By: Esperanza Khanna Order Number: [id number] Luis MD: Juan M Schmitz Measurements Intervals Richardson Rate: 93 P: 72 MD: 143 QRS: -72 QRSD: 99 T: 84 QT: 337 QTc: 420 Interpretive Statements Sinus rhythm Left anterior fascicular block Abnormal R-wave progression, early transition Compared to ECG 05/06/2020 06:27:12 No significant changes Electronically Signed On 05-30-2020 9:32:49 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
[2020-05-30 12:08] VITALS: BP 123/75
[2020-05-30 16:00] VITALS: BP 137/87
[2020-05-30 20:00] VITALS: BP 121/67
--- NOTE | 2020-05-30 20:21 | 2DMMODE ---
[place] [address] 2 D/M-MODE ECHOCARDIOGRAM Name: FADI NICHOLAS Room: [address] MZarinaRZarina#: [id number] Admission: 05/29/20 Attend Phys: Sebastian Claudio, Discharge: Date of : 59 Date of Service: 05/30/202020 Report #: [id number] THIS REPORT FOR: cc: FAM - No family physician/PCP FAM - No family physician/PCP Juan M Schmitz MD [facility] ~ APPROVED REPORT Study performed: 05/30/2020 14:45:31 EXAM: Comprehensive 2D, Doppler, and color-flow Echocardiogram Patient Location: In-Patient Room #: [facility] Status: routine BSA: 2.38 HR: 89 bpm BP: 123/75 mmHg Rhythm: NSR Other Information Study Quality: Good Indications COPD Dyspnea 2D Dimensions IVSd: 11.23 (7-11mm) LVOT Diam: 21.15 (18-24mm) LVDd: 55.01 mm PWd: 9.73 (7-11mm) Ascending Ao: 30.26 (22-36mm) LVDs: 26.50 (25-40mm) Aortic Root: 38.81 mm Volumes Left Atrial Volume (Systole) LA ESV Index: 13.40 mL/m2 Aortic Valve AoV Peak Keith.: 1.52 m/s AO Peak Gr.: 9.19 mmHg LVOT Max P.56 mmHg AO Mean Gr.: 5.11 mmHg LVOT Mean P.84 mmHg LVOT Max V: 1.28 m/s AO V2 VTI: 23.72 cm LVOT Mean V: 0.93 m/s RAFI (VTI): 3.40 cm2 LVOT V1 VTI: 22.96 [place] [address] 2 D/M-MODE ECHOCARDIOGRAM Name: FADI NICHOLAS Room: [address] M.R.#: [id number] Admission: 05/29/20 Attend Phys: Sebastian Claudio, Discharge: Date of : 59 Date of Service: 05/30/202020 Report #: [id number] Mitral Valve E/A Ratio: 1.23 MV Decel. Time: 223.77 ms MV E Max Keith.: 0.80 m/s MV PHT: 64.89 ms MVA (PHT): 3.39 cm2 TDI E/Lateral E': 5.71 E/Medial E': 5.00 Medial E' Keith.: 0.16 m/s Lateral E' Keith.: 0.14 m/s Pulmonary Valve PV Peak Keith.: 1.09 m/s PV Peak Gr.: 4.73 mmHg Tricuspid Valve RAP Estimate: 5.00 mmHg TR Peak Gr.: 27.24 mmHg RVSP: 32.00 mmHg PA Pressure: 32.00 mmHg Left Ventricle The left ventricle is normal size. There is normal LV segmental wall motion. There is normal left ventricular wall thickness. Left ventricular systolic function is normal. The left ventricular ejection fraction is within the normal range. LVEF is 65-70%. The left ventricular diastolic function is normal. Right Ventricle The right ventricle is normal size. The right ventricular systolic function is normal. Atria The left atrium size is normal. The right atrium size is normal. Aortic Valve The aortic valve is normal in structure. No aortic regurgitation is present. There is no aortic valvular stenosis. Mitral Valve The mitral valve is normal in structure. There is no mitral valve regurgitation noted. No evidence of mitral valve stenosis. Tricuspid Valve The tricuspid valve is normal in structure[place] [address] 2 D/M-MODE ECHOCARDIOGRAM Name: FADI NICHOLAS Room: [address]#: [id number] Admission: 05/29/20 Attend Phys: Sebastian Claudio, Discharge: Date of : 59 Date of Service: 05/30/202020 Report #: [id number] regurgitation. Mild pulmonary hypertension. Pulmonic Valve Pulmonic valve is not well visualized. There is no pulmonic valvular regurgitation. Great Vessels The aortic root is normal in size. IVC is normal in size and collapses >50% with inspiration. Pericardium There is no pericardial effusion. <Conclusion> Left ventricular systolic function is normal. The left ventricular ejection fraction is within the normal range. <ELECTRONICALLY SIGNED> By: Juan M Schmitz MD, FACC 05/30/202020 20 20 Jaun M Schmitz MD, FACC /INF
[2020-05-31 04:30] VITALS: BP 121/73
[2020-05-31 04:40] LABS: HEMATOCRIT 45.1 % (42.0-52.0); HEMOGLOBIN 14.9 gm/dL (14.0-18.0); MCH 31.5 pg (26.0-34.0); MCV 95.3 fL (80.0-100.0); MPV 8.4 fl. (7.2-11.1); NUCLEATED RBCS 0 /100WBC; PLATELET COUNT* 195 thou/uL (150-400); RBC 4.74 mil/uL (4.50-6.00); RDW-CV 13.9 % (10.5-14.5); WBC 13.5 thou/uL (4.0-11.0)
[2020-05-31 04:50] LABS: CALCIUM 9.1 mg/dL (8.5-10.1); MAGNESIUM 2.3 mg/dL (1.8-2.4); POTASSIUM 4.3 mmol/L (3.5-5.1)
[2020-05-31 07:01] LABS: ABSOLUTE LYMPHOCYTES 1.8 thou/uL (0.8-5.3); ABSOLUTE MONOCYTES 0.4 thou/uL (0.0-1.2); ABSOLUTE NEUTROPHILS 11.3 thou/uL (1.6-8.1)
[2020-05-31 07:02] LABS: PLATELET ESTIMATE ADEQUATE
[2020-05-31 07:53] VITALS: BP 119/85
[2020-05-31 11:34] VITALS: BP 117/70
[2020-05-31] MEDS ORDERED: BENZONATATE100 MG PO (12:18)
[2020-05-31] MEDS ORDERED: FLUCONAZOLE 10100 MG PO (12:18)
[2020-05-31] MEDS ORDERED: SINGULAIR 10 MG10 M1 PO (12:18)
[2020-05-31] MEDS ORDERED: PREDNISONE 10 M10 M1 PO (12:22)
[2020-05-31 15:55] VITALS: BP 138/72
== END 2020-05-31 16:43 | disposition home or self-care (01) ==
LOC: M.ERS 20:03 → M.TBA-ER 21:59 → M.2W 21:59
PROVIDERS: Internal Medicine Critical Care Medicine; Personal Emergency Response Attendant; ADMIT Internal Medicine; ATTEND Internal Medicine
DX: J44.1 Chronic obstructive pulmonary disease with (acute) exacerbation (principal); Z20.822 Contact with and (suspected) exposure to COVID-19; J96.10 Chronic respiratory failure, unspecified whether with hypoxia or hypercapnia; B37.0 Candidal stomatitis; G47.10 Hypersomnia, unspecified; R79.89 Other specified abnormal findings of blood chemistry; E66.9 Obesity, unspecified; Z68.35 Body mass index [BMI] 35.0-35.9, adult; Z90.89 Acquired absence of other organs

== ENCOUNTER 2020-07-16 05:18 | Observation (INO) | payer OTHER ==
[~2020-07-16] VITALS: Ht 180.3 cm; Wt 121.1 kg
[~2020-07-16 05:18] MED LIST changes: +ALBUTEROL2.5 MG/31 INH; +BENZONATATE100 MG PO; +FLUCONAZOLE 10100 MG PO; +SINGULAIR 10 MG10 M1 PO
[2020-07-16 05:39] VITALS: BP 149/93
[2020-07-16 05:53] LABS: ABSOLUTE BASOPHILS 0.1 thou/uL (0.0-0.2); ABSOLUTE EOSINOPHILS 0.4 thou/uL (0.0-0.7); ABSOLUTE MONOCYTES 0.7 thou/uL (0.0-1.2); ABSOLUTE NEUTROPHILS 5.5 thou/uL (1.6-8.1); BASOPHILS 0.8 %; EOSINOPHILS 4.2 %; HEMATOCRIT 47.4 % (42.0-52.0); HEMOGLOBIN 15.9 gm/dL (14.0-18.0); LYMPHOCYTES 23.3 %; MCHC 33.5 g/dL (28.0-37.0); MCV 95.6 fL (80.0-100.0); MONOCYTES 8.5 %; MPV 8.2 fl. (7.2-11.1); NUCLEATED RBCS 0 /100WBC; PLATELET COUNT* 172 thou/uL (150-400); POLYS 63.2 %; RBC 4.96 mil/uL (4.50-6.00); RDW-CV 14.2 % (10.5-14.5); WBC 8.7 thou/uL (4.0-11.0)
[2020-07-16 06:02] LABS: CALCIUM 8.6 mg/dL (8.5-10.1); CREATININE 0.9 mg/dL (0.6-1.3); POTASSIUM 3.9 mmol/L (3.5-5.1)
[2020-07-16 06:04] LABS: PROTIME 10.6 Seconds (9.20-11.50)
[2020-07-16 06:13] LABS: ALBUMIN 3.4 g/dL (3.4-5.0); MAGNESIUM 2.3 mg/dL (1.8-2.4); TOTAL BILIRUBIN 0.4 mg/dL (<0.1-1.0); TOTAL PROTEIN 7.2 g/dL (6.4-8.2)
[2020-07-16 10:29] VITALS: BP 132/83
[2020-07-16 13:16] VITALS: BP 117/76
[2020-07-16 13:25] VITALS: BP 113/71
[2020-07-16 20:00] VITALS: BP 126/75
[2020-07-16 23:56] VITALS: BP 117/72
[2020-07-17 04:31] LABS: HEMATOCRIT 45.7 % (42.0-52.0); MCH 31.5 pg (26.0-34.0); MCHC 32.8 g/dL (28.0-37.0); MCV 96.2 fL (80.0-100.0); MPV 8.6 fl. (7.2-11.1); RBC 4.75 mil/uL (4.50-6.00); WBC 12.1 thou/uL (4.0-11.0)
[2020-07-17 04:40] LABS: POTASSIUM 4.1 mmol/L (3.5-5.1)
[2020-07-17 04:43] VITALS: BP 128/77
[2020-07-17 08:00] VITALS: BP 121/76
[2020-07-17 11:11] VITALS: BP 121/76
--- NOTE | 2020-07-17 12:07 | EKG ---
[place] [address] ELECTROCARDIOGRAM REPORT Name: FADI NICHOLAS Room: [address] M.R.#: [id number] Admission: 07/16/20 Attend Phys: Ziggy Mitchell Discharge: Date of : 59 Date of Service: 07/16/20522 Report #: [id number] THIS REPORT FOR: //name// 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[place] : 1955 Requested By: Ada Fregoso Order Number: [id number] MD: Bobby Sultana Measurements Intervals [place] Rate: 92 P: 75 TX: 141 QRS: -71 QRSD: 96 T: 82 QT: 350 QTc: 433 Interpretive Statements Sinus rhythm Left anterior fascicular block Abnormal R-wave progression, early transition Baseline wander in lead(s) V4 Compared to ECG 05/29/2020 20:10:20 No significant changes Electronically Signed On 07-17-2020 12:07:24 CDT by Bobby Sultana [email or web address] <ELECTRONICALLY SIGNED> By: Bobby Sultana MD, [facility] 07/17/20 1207 2 2 Bobby Sultana MD, [facility] /EPI
== END 2020-07-17 12:20 | disposition home or self-care (01) ==
LOC: M.ERS 05:18 → M.2W 06:29 → M.TBA-ER 06:29 → M.2W 13:17
PROVIDERS: Emergency Medicine; Family Medicine; ADMIT Internal Medicine; ATTEND Internal Medicine
DX: J44.1 Chronic obstructive pulmonary disease with (acute) exacerbation (principal); Z20.822 Contact with and (suspected) exposure to COVID-19; J96.90 Respiratory failure, unspecified, unspecified whether with hypoxia or hypercapnia; G47.10 Hypersomnia, unspecified; E66.9 Obesity, unspecified; R79.1 Abnormal coagulation profile; Z91.14 Patient's other noncompliance with medication regimen; Z72.3 Lack of physical exercise; F17.210 Nicotine dependence, cigarettes, uncomplicated; Z79.899 Other long term (current) drug therapy